=== PATIENT | male | born 1945 | race Caucasian/White ===

== ENCOUNTER → 2024-06-12 13:49 | Outpatient (BNVA) | payer MEDICARE, OTHER, SELFPAY | PROVIDERS: Family Provider Family Medicine; Referring Provider Nurse Practitioner Family; Visit Provider Nurse Practitioner Family | DX: L82.1 Other seborrheic keratosis (principal); L81.4 Other melanin hyperpigmentation; L57.8 Other skin changes due to chronic exposure to nonionizing radiation; L57.0 Actinic keratosis; D22.5 Melanocytic nevi of trunk | CPT/HCPCS: 17000; 99203 ==